=== PATIENT | male | born 1955 | race Caucasian/White ===

== ENCOUNTER → 2023-08-18 12:46 | Outpatient (CLI) | payer MEDICARE, OTHER, SELFPAY ==
[2023-08-18 14:23] LABS: Add Manual Diff / Slide Review NO; Basophils Absolute Auto 0 /uL (0-100); Basophils Percent Auto 0.5 % (0-2); Eosinophils Absolute Auto 100 /uL (0-450); Eosinophils Percent Auto 1.5 % (2-4); Hematocrit 36.3 % (41-53); Hemoglobin 11.9 g/dL (13.5-17.5); Lymphocytes Absolute Auto 800 /uL (1100-4500); Lymphocytes Percent Auto 14.2 % (25-40); Mean Corpuscular HGB Conc 32.9 % (30-36); Mean Corpuscular Hemoglobin 28.5 PG (26-34); Mean Corpuscular Volume 86.6 fL (80-100); Monocytes Absolute Auto 300 /uL (0-900); Monocytes Percent Auto 6.2 % (3-14); Neutrophils Absolute Auto 4300 /uL (1500-7000); Neutrophils Percent Auto 77.6 % (50-75); Platelet Count 208 X10^3/uL (150-400); Red Cell Distribution Width 14.6 % (11.6-14.8); White Blood Cell Count 5.6 X10^3/uL (4.5-11.0)
[2023-08-18 14:39] LABS: Blood Urea Nitrogen 20 mg/dL (9-20); Chloride 86 mmol/L (98-107); Cholesterol 143 mg/dL (140-199); Glucose 103 mg/dL (80-110); HDL Cholesterol 65 mg/dL (40-60); HEMOLYSIS < 15 (0-50); LDL Cholesterol Calculated 61 mg/dL (<100); Potassium 3.9 mmol/L (3.4-5.1); Triglycerides 84 mg/dL (35-150)
[2023-08-18 15:12] LABS: BUN Creatinine Ratio 24.4 (6-22); Estimated Glomerular Filt Rate > 60 mL/min (>60); Sodium 138 mmol/L (137-145)
[2023-08-18 15:43] LABS: Carbon Dioxide 47 mmol/L (22-32)
== END ==
PROVIDERS: Referring Provider Internal Medicine Cardiovascular Disease; Visit Provider Internal Medicine Cardiovascular Disease
DX: E78.5 Hyperlipidemia, unspecified (principal); I10 Essential (primary) hypertension
CPT/HCPCS: 36415; 80048; 80061; 85025

== ENCOUNTER → 2024-08-11 14:32 | Outpatient (CLI) | payer MEDICARE, OTHER, SELFPAY ==
--- NOTE | 2024-08-11 14:37 | DI.ECHO.S_ITS ---
[facility] : : [address] : : [place] : : [id number] : : Phone: [phone] Echocardiogram Report + + :Name: CARMEN COLON Study Date: 08/11/2024 Height: 73 in : :[facility] ReadingLocation: Weight: 174 lb : : Gender: Male BSA: 2.0 m2 : :: 1955 Age: 69 yrs BP: 127/74 mmHg: :Reason For Study: COR [place] : :Ordering Physician: MARLON, : :RIANA Performed By: Kevon Mcgee : :Referring: RIANA GRIFFITHS : + + Interpretation Summary 1) Normal left ventricular size, thickness, wall motion, and systolic function (EF 55-60%). 2) Normal right ventricular size and function. 3) No significant valvular abnormalities. 4) The right ventricular systolic pressure is estimated to be at least 44 mmHg based on an estimated right atrial pressure of 8 mm Hg. 5) Compared to the Echo done 07/09/2017, no significant change. Procedure: A two-dimensional transthoracic echocardiogram with color flow and Doppler was performed. The study quality was technically adequate. Most of the acoustic windows were suboptimal, but the best imaging was obtained from the apical window. Comparison is made with the echocardiogram of 07/09/2017. The patient was in normal sinus rhythm during the exam. Left Ventricle: The left ventricle is normal in size. There is normal left ventricular wall thickness. There is no ventricular septal defect visualized. The ejection fraction is estimated to be 55-60%. There are no focal wall motion abnormalities. Right Ventricle: The right ventricle is normal in size and function. Atria: The left atrial size is normal. The right atrium is mild to moderately dilated. There is no Doppler evidence for an atrial septal defect. Mitral Valve: The mitral valve is normal in structure and function. There is no mitral regurgitation noted. Aortic Valve: The aortic valve is trileaflet. The aortic valve opens well. The aortic valve is mildly calcified. There is no aortic valve stenosis. No aortic regurgitation is present. Tricuspid Valve: The tricuspid valve is normal in structure and function. There is trace tricuspid regurgitation. The right ventricular systolic pressure is estimated to be at least 44 mmHg based on an estimated right atrial pressure of 8 mm Hg. Pulmonic Valve: The pulmonic valve is normal in structure and function. There is trace pulmonic regurgitation. Great Vessels: The aortic root is borderline dilated. The dimensions of the ascending aorta are normal. The pulmonary artery is normal size. The IVC is dilated (diameter is greater than 2.1 cm) yet it collapses greater than 50% with a sniff. This suggests a right atrial pressure of 8 mm Hg. Pericardium/ Pleura There is no pericardial effusion. There is no pleural effusion. MMode/2D Measurements & Calculations LVIDd: 4.7 cm LVOT diam: 2.2 cm LVIDs: 3.1 cm Ao root diam: 3.9 cm FS: 32.6 % asc Aorta Diam: 3.6 cm EPSS: 0.64 cm IVSd: 0.90 cm LVPWd: 0.88 cm LV stanford. diameter/BSA (cm/m^2): 2.3 LV sys. diameter/BSA (cm/m^2): 1.6 LA A2 area: 23.2 cm2 RA long axis: 5.9 cm LA A4 area: 19.4 cm2 RA area: 22.9 cm2 LA length (vol): 5.6 cm RA vol: 75.1 ml LA vol: 68.3 ml RA : 37.1 ml/m2 LA vol index: 33.7 ml/m2 IVC diam: 2.2 cm RVD1 (basal): 3.7 cm RVD2 (mid): 3.0 cm TAPSE: 2.9 cm Doppler Measurements & Calculations Ao V2 max: 168.2 cm/sec LVOT Max Dylon: 120.3 cm/sec Ao V2 mean: 115.5 cm/sec LV V1 max P.8 mmHg Ao max P.3 mmHg LV V1 VTI: 25.1 cm Ao mean P.9 mmHg DRU(I,D): 2.7 cm2 Ao V2 VTI: 33.9 cm DRU(V,D): 2.6 cm2 sev ratio: 0.74 DRU indexed to BSA (cm^2/m^2): 1.3 MV E max dylon: 64.9 cm/sec TR max dylon: 299.9 cm/sec MV A max dylon: 82.2 cm/sec TR max P.1 mmHg MV E/A: 0.79 PA V2 max: 119.3 cm/sec Med Peak E' Ydlon: 11.2 cm/sec PA V2 mean: 71.7 cm/sec E/E' med: 5.8 PA mean P.4 mmHg Lat Peak E' Dylon: 9.3 cm/sec PA pr(Accel): 29.3 mmHg E/E' lat: 7.0 E/e' average: 6.4 MV dec time: 0.22 sec SV(LVOT): 92.4 ml Reading Physician:09:15 AM
[2024-08-11 15:54] LABS: Add Manual Diff / Slide Review NO; Basophils Absolute Auto 0 /uL (0-100); Basophils Percent Auto 0.4 % (0-2); Eosinophils Absolute Auto 100 /uL (0-450); Hematocrit 38.4 % (41-53); Hemoglobin 12.5 g/dL (13.5-17.5); Lymphocytes Absolute Auto 800 /uL (1100-4500); Lymphocytes Percent Auto 12.5 % (25-40); Mean Corpuscular HGB Conc 32.5 % (30-36); Mean Corpuscular Volume 86.3 fL (80-100); Monocytes Absolute Auto 400 /uL (0-900); Monocytes Percent Auto 6.2 % (3-14); Neutrophils Absolute Auto 5100 /uL (1500-7000); Neutrophils Percent Auto 79.9 % (50-75); Platelet Count 215 X10^3/uL (150-400); Red Blood Cell Count 4.45 X10^6/uL (4.5-5.9); Red Cell Distribution Width 14.3 % (11.6-14.8); White Blood Cell Count 6.4 X10^3/uL (4.5-11.0)
[2024-08-11 16:33] LABS: BUN Creatinine Ratio 17.5 (6-22); Blood Urea Nitrogen 17 mg/dL (9-20); Chloride 90 mmol/L (98-107); Cholesterol 138 mg/dL (140-199); Estimated Glomerular Filt Rate > 60 mL/min (>60); Glucose 110 mg/dL (80-110); HDL Cholesterol 83 mg/dL (40-60); HEMOLYSIS < 15 (0-50); LDL Cholesterol Calculated 41 mg/dL (<100); Potassium 3.7 mmol/L (3.4-5.1); Sodium 137 mmol/L (137-145); Triglycerides 69 mg/dL (35-150)
[2024-08-11 16:40] LABS: Carbon Dioxide 38 mmol/L (22-32)
== END ==
PROVIDERS: Referring Provider Internal Medicine Cardiovascular Disease; Visit Provider Internal Medicine Cardiovascular Disease
DX: I27.81 Cor pulmonale (chronic) (principal); I10 Essential (primary) hypertension
CPT/HCPCS: 36415; 80048; 80061; 85025; 93306

== ENCOUNTER → 2025-08-08 13:23 | Outpatient (CLI) | payer MEDICARE, OTHER, SELFPAY ==
[2025-08-08 13:52] LABS: Hematocrit 34.8 % (41-53); Hemoglobin 11.5 g/dL (13.5-17.5); Mean Corpuscular HGB Conc 33.0 % (30-36); Mean Corpuscular Hemoglobin 28.2 PG (26-34); Mean Corpuscular Volume 85.4 fL (80-100); Platelet Count 230 X10^3/uL (150-400)
[2025-08-08 14:50] LABS: Blood Urea Nitrogen 21 mg/dL (9-20); Calcium 10.2 mg/dL (8.4-10.2); Chloride 90 mmol/L (98-107); Cholesterol 144 mg/dL (140-199); Estimated Glomerular Filt Rate > 60 mL/min (>60); Glucose 109 mg/dL (70-99); HDL Cholesterol 79 mg/dL (40-60); HEMOLYSIS < 15 (0-50); Potassium 4.4 mmol/L (3.4-5.1); Sodium 137 mmol/L (137-145); Triglycerides 82 mg/dL (35-150)
[2025-08-08 14:57] LABS: Carbon Dioxide 38 mmol/L (22-32)
== END ==
PROVIDERS: Referring Provider Internal Medicine Cardiovascular Disease; Visit Provider Internal Medicine Cardiovascular Disease
DX: I25.10 Atherosclerotic heart disease of native coronary artery without angina pectoris (principal)
CPT/HCPCS: 36415; 80048; 80061; 85027

== ENCOUNTER → 2025-08-28 14:04 | Outpatient (CLI) | payer MEDICARE, OTHER, SELFPAY ==
--- NOTE | 2025-08-28 14:06 | DI.CT.S_ITS ---
PROCEDURE: CT CHEST WO CON INDICATIONS: Severe emphysema TECHNIQUE: Noncontrast 5 mm thick sections acquired from the pulmonary apices to the posterior costophrenic angles. 1 mm lung window, 5 mm thick coronal and sagittal and 7 mm axial MIP reformats were then acquired. For radiation dose reduction, the following was used: automated exposure control, adjustment of mA and/or kV according to patient size. COMPARISON: No prior CT chest for comparison. Comparison can be made to prior CT abdomen/pelvis 06/22/2025. FINDINGS: Image quality: Diagnostic. Some images are limited by beam hardening and other artifacts. Severe COPD/emphysematous changes with large bulla. Mild bibasilar subsegmental atelectasis left greater than right. Pleural-parenchymal scarring with nonspecific pleural based nodular density right lower lobe medial basal measuring up to 1.5 cm (series 3, image 297) follow-up suggested. Hyperinflated lungs with mildly elevated left hemidiaphragm. Small hiatal hernia with nonspecific wall thickening of the distal esophagus into the stomach, unchanged some of which may be artifact from partial nondistention although esophagitis, gastritis or other process could be considered. In the upper abdomen cholelithiasis again noted partially imaged. [id number] three-vessel coronary artery calcifications. A moderate degenerative changes of the thoracic spine without CT evidence of fracture subluxation, central stenosis or osseous lytic or blastic lesion. No pneumothorax, no pleural effusion, no pericardial effusion, no lobar consolidation. No other lung nodules. Heart: Heart size is normal. No pericardial effusion. Thoracic Vessels: The aorta and pulmonary arteries demonstrate normal size. Mediastinum and Lisa: No enlarged lymph nodes. IMPRESSION: Pleural parenchymal scarring and nodular density right lower lobe medial basal 1.5 cm as discussed above. Severe COPD/emphysematous changes. Coronary artery calcifications. Small hiatal hernia nonspecific wall thickening distal esophagus into the stomach. Other findings as above. Dictated by: Justin Lugo M.D. on 08/29/2025 at 9:23 Approved by: Justin Lugo M.D. on 08/29/2025 at 9:32
== END ==
LOC: CT 14:05
PROVIDERS: Referring Provider Student in an Organized Health Care Education/Training Program; Visit Provider Student in an Organized Health Care Education/Training Program
DX: J43.2 Centrilobular emphysema (principal); J98.11 Atelectasis; J98.4 Other disorders of lung; K80.20 Calculus of gallbladder without cholecystitis without obstruction; K44.9 Diaphragmatic hernia without obstruction or gangrene
CPT/HCPCS: 71250

== ENCOUNTER → 2025-09-04 10:24 | Outpatient (CLI) | payer MEDICARE, OTHER, SELFPAY | LOC: RESP 10:26 | PROVIDERS: Referring Provider Student in an Organized Health Care Education/Training Program; Visit Provider Student in an Organized Health Care Education/Training Program | DX: J43.9 Emphysema, unspecified (principal); R06.00 Dyspnea, unspecified; Z87.891 Personal history of nicotine dependence; R94.2 Abnormal results of pulmonary function studies | CPT/HCPCS: 94060; 94726; 94729 ==